=== PATIENT | male | born 1950 | race Caucasian/White ===

== ENCOUNTER → 2018-08-18 | Outpatient (CLI) | payer MEDICARE, BC ==
[~2018-08-18] VITALS: Ht 167.6 cm; Wt 94.8 kg
[~2018-08-18] MED LIST: ALLERGY RELIEF10 MG PO; ASPIRIN E.C. 8181 MG PO; CALCIUM 600/VIT1 CA1 PO; FOSAMAX 70MG TA70 MG PO; IMDUR 30MG30 MG/TAB PO; LIPITOR 10MG10 MG PO; LOPRESSOR 550 MG/TAB PO; LORTAB 5/500 501 TAB PO; MASON NATURAL2000 IU PO; PLAVIX 75MG TAB75 MG PO; PRILOSEC 20MG20 MG PO; TERAZOSIN; ZANTAC; ZESTRIL 20MG TA20 MG PO
[2018-08-18 10:39] VITALS: BP 157/86; PULSE 62
== END ==
LOC: COL.CARD 10:28
DX: R07.9 Chest pain, unspecified (principal); I25.10 Atherosclerotic heart disease of native coronary artery without angina pectoris; Z95.5 Presence of coronary angioplasty implant and graft
CPT/HCPCS: A9502

== ENCOUNTER 2018-09-01 07:21 | Day surgery (SDC) | payer MEDICARE, BC ==
[2018-09-01] VITALS (786 sets, daily range): BP systolic 18–157; BP diastolic 39–86; PULSE 39–54; TEMP 97.9–98.7; O2SAT 86–100
[~2018-09-01] VITALS: Ht 167.8 cm; Wt 93.0 kg
[2018-09-01] MEDS ORDERED: NITROSTAT0.4 MG/TAB SL (07:52)
[2018-09-01] MEDS ORDERED: ATIVAN 0.50.5 MG/TAB PO (07:54)
[2018-09-01] MEDS ORDERED: LOPRESSOR 225 MG/TAB PO (07:56)
[2018-09-01] MEDS ORDERED: ZANTAC 150MG T150 MG PO (07:56)
[2018-09-01] MEDS ORDERED: VITAMIN D 400400 IU PO (07:57)
[2018-09-01 08:24] LABS: HEMATOCRIT 41.1 % (42.0-52.0); HEMOGLOBIN 13.4 g/dl (13.5-18.0); MEAN CELL VOLUME 92 fl (80.0-100.0); MEAN CORPUSCULAR HEMOGLOBIN 30 pg (27.0-31.0); MEAN CORPUSCULAR HGB CONC 33 g/dl (33.0-37.0); MEAN PLATELET VOLUME 9.1 fl (7.4-10.4); PLATELET COUNT 208 K/mm3 (130-400); RED BLOOD COUNT 4.48 M/mm3 (4.20-5.60); REDCELL DISTRIBUTION WIDTH-CV 13.1 % (11.5-14.5)
[2018-09-01 08:33] LABS: INR 1.1 (0.8-3.0); PROTHROMBIN TIME 12.3 SECONDS (9.7-12.8)
[2018-09-01 08:38] LABS: CALCIUM 8.7 mg/dL (8.4-10.2); CREATININE, serum 0.86 mg/dL (0.66-1.25); POTASSIUM 4.5 mmol/L (3.4-5.0)
[2018-09-02] VITALS (676 sets, daily range): BP systolic 104–118; BP diastolic 52–61; PULSE 44–88; TEMP 97.8–97.9; O2SAT 88–100
[2018-09-02 05:56] LABS: BASO % 0.5 % (0.0-2.0); EOS # 0.3 (0.0-0.7); EOS % 3.5 % (0-4.0); GRAN # 5.8 (1.4-6.5); GRAN % 69.6 % (42.2-75.2); HEMATOCRIT 38.7 % (42.0-52.0); HEMOGLOBIN 12.7 g/dl (13.5-18.0); LYMPH # 1.3 (1.2-3.4); LYMPH % 15.5 % (20.0-51.0); MEAN CELL VOLUME 91 fl (80.0-100.0); MEAN CORPUSCULAR HEMOGLOBIN 30 pg (27.0-31.0); MEAN CORPUSCULAR HGB CONC 33 g/dl (33.0-37.0); MEAN PLATELET VOLUME 9.2 fl (7.4-10.4); MONO # 0.9 (0.1-0.6); MONO % 10.5 % (1.7-9.3); PLATELET COUNT 194 K/mm3 (130-400); RED BLOOD COUNT 4.25 M/mm3 (4.20-5.60); REDCELL DISTRIBUTION WIDTH-CV 13.3 % (11.5-14.5)
[2018-09-02 06:42] LABS: CALCIUM 9.1 mg/dL (8.4-10.2); CREATININE, serum 0.77 mg/dL (0.66-1.25); POTASSIUM 4.4 mmol/L (3.4-5.0)
[2018-09-02] MEDS ORDERED: LIPITOR 40MG TA40 MG PO (09:28)
[2018-09-02] MEDS ORDERED: BRILINTA90 MG PO (09:28)
[2018-09-02] MEDS ORDERED: ISOSORBIDE MON120 MG PO (09:29)
[2018-09-02] MEDS ORDERED: PRIL40 PO (09:48)
== END 2018-09-02 11:43 | disposition home or self-care (01) ==
LOC: ICU 07:21 → COL.CAR 07:21 → ICU 10:39 → COL.CAR 09-02 11:43
PROVIDERS: Internal Medicine Cardiovascular Disease; Nurse Practitioner
DX: I25.10 Atherosclerotic heart disease of native coronary artery without angina pectoris (principal); R94.39 Abnormal result of other cardiovascular function study; I08.3 Combined rheumatic disorders of mitral, aortic and tricuspid valves; M10.9 Gout, unspecified; E78.5 Hyperlipidemia, unspecified; I10 Essential (primary) hypertension; Z79.82 Long term (current) use of aspirin; Z79.02 Long term (current) use of antithrombotics/antiplatelets; F17.200 Nicotine dependence, unspecified, uncomplicated; Z85.46 Personal history of malignant neoplasm of prostate; Z92.3 Personal history of irradiation
CPT/HCPCS: OP; C1725; C1760; C1769; C1874; C1887; C1894; C9600; J0153; J0583; J1644; J2250; J3010

== ENCOUNTER 2018-12-05 14:59 | Outpatient (RCR) | payer MEDICARE, BC ==
[~2018-12-05 14:59] MED LIST changes: +ATIVAN 0.50.5 MG/TAB PO; +BRILINTA90 MG PO; +ISOSORBIDE MON120 MG PO; +LIPITOR 40MG TA40 MG PO; +LOPRESSOR 225 MG/TAB PO; +NITROSTAT0.4 MG/TAB SL; +PRIL40 PO; +VITAMIN D 400400 IU PO; +ZANTAC 150MG T150 MG PO
== END 2018-12-07 13:35 | disposition home or self-care (01) ==
LOC: COL.CR 14:59
DX: Z48.812 Encounter for surgical aftercare following surgery on the circulatory system (principal); Z95.5 Presence of coronary angioplasty implant and graft; I25.10 Atherosclerotic heart disease of native coronary artery without angina pectoris

== ENCOUNTER 2020-05-17 07:03 | Day surgery (SDC) | payer MEDICARE, BC ==
[2020-05-17] VITALS (9 sets, daily range): BP systolic 106–133; BP diastolic 50–71; PULSE 43–51; TEMP 97.5
[~2020-05-17] VITALS: Ht 167.7 cm; Wt 89.0 kg
[~2020-05-17 07:03] MED LIST changes: +AMOXICILLIN 50500 MG PO; -CALCIUM 600/VIT1 CA1 PO; +IRON TABLETS325 MG PO; +MULTIVITAMIN SEN PO; +NEXIUM 40MG40 MG PO; +ZYRTEC 10MG10 MG PO
[2020-05-17 07:55] LABS: HEMOGLOBIN 11.6 g/dl (13.5-18.0); MEAN CELL VOLUME 85 fl (80.0-100.0); MEAN CORPUSCULAR HEMOGLOBIN 27 pg (27.0-31.0); MEAN CORPUSCULAR HGB CONC 32 g/dl (33.0-37.0); MEAN PLATELET VOLUME 9.2 fl (7.4-10.4); PLATELET COUNT 191 K/mm3 (130-400); RED BLOOD COUNT 4.27 M/mm3 (4.20-5.60)
[2020-05-17 07:58] LABS: HEMATOCRIT 36.4 % (42.0-52.0)
[2020-05-17 08:04] LABS: CALCIUM 8.9 mg/dL (8.4-10.2); CREATININE, serum 0.85 (0.66-1.25); POTASSIUM 4.4 mmol/L (3.4-5.0)
[2020-05-17 08:17] LABS: INR 1.1 (0.8-3.0); PROTHROMBIN TIME 12.1 SECONDS (9.7-12.8)
[2020-05-17 08:19] LABS: PARTIAL THROMBOPLASTIN TIME 31.1 SECONDS (26.0-37.0)
--- NOTE | 2020-05-17 09:11 | NUR ---
SEE MERGE FOR MEDICATION ADMINISTRATION TIMES AND INTRA AND POST SEDATION ASSESSMENTS.
[2020-05-17] MEDS ORDERED: IMDUR 30MG30 MG/TAB PO (09:50)
--- NOTE | 2020-05-17 09:55 | NUR ---
PT RECIEVED FROM [employer] VIA BED TO EU 12, ALERT TO SURROUNDINGS, NO C/O. CALL LIGHT IN REACH, HAS TR BAND ON AT 12CC, REVIEWED BEDREST AND ACTIVITY WITH PT
--- NOTE | 2020-05-17 11:00 | NUR ---
pt used urinal in bed, ordered lunch, no c/o. Dr Garcia into see pt
--- NOTE | 2020-05-17 12:00 | NUR ---
pt sits up and eats lunch, air release started band, 2cc will monitor
--- NOTE | 2020-05-17 12:30 | NUR ---
all air released from arm band, no signs of bleeding bandaid/coban applied, reviewed discharge inst. with pt on activity, precautions, new medication, and followup appts made, with verbal understanding.
--- NOTE | 2020-05-17 13:00 | NUR ---
iv d'cd intact, pt is up in room dressed, calls ride on phone, discharged at 1315 via w/c to entrance
== END 2020-05-17 13:15 | disposition home or self-care (01) ==
LOC: COL.CAR 07:03
PROVIDERS: Internal Medicine Cardiovascular Disease
DX: I25.10 Atherosclerotic heart disease of native coronary artery without angina pectoris (principal); I08.3 Combined rheumatic disorders of mitral, aortic and tricuspid valves; D50.9 Iron deficiency anemia, unspecified; I10 Essential (primary) hypertension; E78.5 Hyperlipidemia, unspecified; M10.9 Gout, unspecified; Z85.46 Personal history of malignant neoplasm of prostate; Z87.891 Personal history of nicotine dependence; Z92.3 Personal history of irradiation; Z95.5 Presence of coronary angioplasty implant and graft; Z79.82 Long term (current) use of aspirin
CPT/HCPCS: C1769; J1644; J2250; J3010; Q9967

== ENCOUNTER 2020-09-19 13:00 | Outpatient (RCR) | payer MEDICARE, BC ==
[2020-09-11 13:02] VITALS: BP 98/46; PULSE 50; TEMP 98.8
[2020-09-16 13:38] VITALS: BP 115/68; PULSE 112; PULSE 54; TEMP 98.8; TEMP 99.2
[~2020-09-19] VITALS: Ht 167.6 cm; Wt 86.6 kg
[~2020-09-19 13:00] MED LIST changes: +FERROUSAL325 MG PO; -NEXIUM 40MG40 MG PO; +PACERONE200 MG PO; +PROTONIX 40MG T40 MG PO; +TOPROL XL 25MG25 MG PO; +ZESTRIL 10MG10 MG PO; -ZESTRIL 20MG TA20 MG PO
[2020-09-19 13:40] VITALS: BP 108/52; PULSE 53; TEMP 98.9
== END 2020-09-19 14:55 | disposition home or self-care (01) ==
LOC: EUO 13:00
DX: D50.9 Iron deficiency anemia, unspecified (principal)
CPT/HCPCS: J2916

== ENCOUNTER 2020-10-21 15:13 | Outpatient (RCR) | payer MEDICARE, BC | END 2020-10-22 | disposition home or self-care (01) | LOC: COL.CR | DX: Z48.812 Encounter for surgical aftercare following surgery on the circulatory system (principal); Z95.1 Presence of aortocoronary bypass graft; I25.119 Atherosclerotic heart disease of native coronary artery with unspecified angina pectoris ==

== ENCOUNTER → 2020-11-11 | Outpatient (RCR) | payer MEDICARE, BC | END | disposition home or self-care (01) | LOC: COL.CR | DX: Z48.812 Encounter for surgical aftercare following surgery on the circulatory system (principal); Z95.1 Presence of aortocoronary bypass graft ==

== ENCOUNTER → 2023-01-28 | Outpatient (CLI) | payer MEDICARE, BC | LOC: COL.RAD 13:34 | DX: R10.9 Unspecified abdominal pain (principal) ==